=== PATIENT | male | born 1980 | race Caucasian/White ===

== ENCOUNTER 2018-01-03 07:07 | Emergency (ER) | payer OTHER ==
[2018-01-03 07:22] VITALS: BP 158/81
[2018-01-03] MEDS ORDERED: LIDOCAINE 1% INJ-PF (10 MG/ML) 30 ML SDV INJ ONE (07:46)
--- NOTE | 2018-01-03 07:58 | ER Document Report ---
HPI - HPI Patient complains to provider of: Laceration Onset: Just prior to arrival Onset/Duration: Sudden Quality of pain: Achy Severity: Moderate Pain Level: 3 Context: Patient presents emergency department with complaints of laceration to right palm. Patient reports he was working for [employer] when he stuck his hand in a box and there was a razor cutting his hand. He reports the razor was clean. Is unsure when his last tetanus was possibly 3-4 years ago. Patient is right-hand dominant. Has full range of motion no active bleeding. good cap refill Associated Symptoms: None Exacerbated by: Denies Relieved by: Denies Similar symptoms previously: No Recently seen / treated by doctor: No - CONSTITUTIONAL Constitutional: DENIES: Fever, Chills Past Medical History - General Information source: Patient - Social History Smoking Status: Current Every Day Smoker Chew tobacco use (# tins/day): No Frequency of alcohol use: None Drug Abuse: None Occupation: [employer] Lives with: Family Family History: None Patient has suicidal ideation: No Patient has homicidal ideation: No - Medical History Medical History: Negative Renal/ Medical History: Denies: Hx Peritoneal Dialysis Surgical Hx: Negative Vertical Provider Document - CONSTITUTIONAL Agree With Documented VS: Yes Exam Limitations: No Limitations General Appearance: WD/WN, No Apparent Distress - INFECTION CONTROL TRAVEL OUTSIDE OF THE [place] IN LAST 30 DAYS: No - HEENT HEENT: Atraumatic, Normocephalic - NECK Neck: Supple - RESPIRATORY Respiratory: No Respiratory Distress - CARDIOVASCULAR Cardiovascular: Tachycardia - MUSCULOSKELETAL/EXTREMETIES Musculoskeletal/Extremeties: MAEW, FROM, Tender - NEURO Level of Consciousness: Awake, Alert, Appropriate Motor/Sensory: No Motor Deficit - DERM Integumentary: Warm, Dry, Laceration - 3cm curved laceration to right palm, no active bleeding Course - Re-evaluation Re-evalutation: 01/03/18 16:24 Patient was instructed on signs and symptoms of infection. Sutures placed reinforced with Steri-Strips. Patient was given a work note to be off work for 10 days and instructed to return here to follow-up to have suture removal. He verbalized understanding to all instructions. - Vital Signs Vital signs: Temp Pulse Resp BP Pulse Ox 98.6 F 107 H 16 158/81 H 99 01/03/18 07:13 01/03/18 07:13 01/03/18 07:13 01/03/18 07:13 01/03/18 07:13 Procedures - Laceration/Wound Repair Right Hand Time completed: 08:56 Wound length (cm): 3 Wound's Depth, Shape: Irregular Laceration pre-procedure: Sterile PPE donned, Shur-Clens applied Anesthetic type: 1% Lidocaine Volume Anesthetic (mLs): 6 Wound explored: Clean Irrigated w/ Saline (mLs): 100 Wound Repaired With: Sutures, Steri-strips Suture Size/Type: 5:0, Nylon Number of Sutures: 9 Layer Closure?: No Post-procedure NV exam normal: Yes Complications: No Hands front picture: 1 - 3 CM LAC CLOSED WITH 9 SUTURES, FROM, DENIES NUMBNESS TINGLING Discharge - Discharge Clinical Impression: Laceration of right palm Qualifiers: Encounter type: initial encounter Qualified Code(s): S61.411A - Laceration without foreign body of right hand, initial encounter Condition: Stable Disposition: HOME, SELF-CARE Instructions: Laceration Care (OM), Soap Cleansing (OM), Tetanus Immunization Given ([facility]) Additional Instructions: *You have been treated for a laceration *Monitor the site for signs of infection such as increasing pain, redness, swelling, warmth *Keep the area clean, do not submerge in water such as the new river *Return to the Emergency Department in 10 days for suture removal *Return to ED earlier for signs of infection, worsening condition, changes, needs, concerns Forms: Return to Work
[2018-01-03] MEDS ORDERED: DIPH/PERTUSS(ACELL)/TETANUS VAC/PF 0.5 ML SYR (>=10YO) IM ONE (08:54)
== END 2018-01-03 09:14 | disposition home or self-care (01) ==
LOC: ER 07:07
PROC: 0HQFXZZ Repair Right Hand Skin, External Approach (ICD-10-PCS; principal; 2018-01-03)
DX: S61.411A Laceration without foreign body of right hand, initial encounter (principal); W26.0XXA Contact with knife, initial encounter; F17.200 Nicotine dependence, unspecified, uncomplicated
CPT/HCPCS: 99283; 90471; 90715; 12002; J3490

== ENCOUNTER 2018-01-13 06:55 | Emergency (ER) | payer OTHER ==
[2018-01-13 07:35] VITALS: BP 147/91
--- NOTE | 2018-01-13 07:43 | ER Document Report ---
ED General - General Chief Complaint: Other Stated Complaint: STITCHES REMOVAL Time Seen by Provider: 01/13/18 07:19 Mode of Arrival: Ambulatory Information source: Patient Notes: Patient is a 37-year-old male who presents to the ER today to get sutures removed from the right palm that he had placed 7 days ago. Patient states that he was initially injured on accident with a switch box installer. He was up-to-date on tetanus. He denies that he has had any redness or drainage from the area. TRAVEL OUTSIDE OF THE [place] IN LAST 30 DAYS: No - Related Data Allergies/Adverse Reactions: No Known Allergies Allergy (Verified 01/13/18 06:58) Home Medications: no home meds Past Medical History - General Information source: Patient - Social History Smoking Status: Current Every Day Smoker Chew tobacco use (# tins/day): No Frequency of alcohol use: None Drug Abuse: None Family History: None Patient has suicidal ideation: No Patient has homicidal ideation: No Renal/ Medical History: Denies: Hx Peritoneal Dialysis Review of Systems - Review of Systems Constitutional: No symptoms reported EENT: No symptoms reported Cardiovascular: No symptoms reported Respiratory: No symptoms reported Gastrointestinal: No symptoms reported Genitourinary: No symptoms reported Male Genitourinary: No symptoms reported Musculoskeletal: No symptoms reported Skin: See HPI Hematologic/Lymphatic: No symptoms reported Neurological/Psychological: No symptoms reported Physical Exam - Vital signs Vitals: Temp Pulse Resp BP Pulse Ox 99.0 F 94 20 147/91 H 98 01/13/18 07:34 01/13/18 07:34 01/13/18 07:34 01/13/18 07:34 01/13/18 07:34 - Notes Notes: PHYSICAL EXAMINATION: GENERAL: Well-appearing and in no acute distress. HEAD: Atraumatic, normocephalic. EYES: Pupils equal round and reactive to light, extraocular movements intact, sclera anicteric, conjunctiva are normal. NECK: Normal range of motion, supple without lymphadenopathy LUNGS: CTAB and equal. No wheezes rales or rhonchi. HEART: Regular rate and rhythm without murmurs EXTREMITIES: Normal range of motion, no pitting edema. No cyanosis. NEUROLOGICAL: Cranial nerves grossly intact. Normal sensory/motor exams. PSYCH: Normal mood, normal affect. SKIN: Warm, Dry, normal turgor, 9 sutures placed to the right palm at the base of the right thumb, well-healed, no erythema or drainage Course - Re-evaluation Re-evalutation: 01/13/18 07:42 Sutures were removed successfully by nurse. - Vital Signs Vital signs: Temp Pulse Resp BP Pulse Ox 99.0 F 94 20 147/91 H 98 01/13/18 07:34 01/13/18 07:34 01/13/18 07:34 01/13/18 07:34 01/13/18 07:34 Discharge - Discharge Clinical Impression: Visit for suture removal Condition: Stable Disposition: HOME, SELF-CARE Additional Instructions: Return immediately for any new or worsening symptoms. Follow up with primary care provider, call tomorrow to make followup appointment.
== END 2018-01-13 08:05 | disposition home or self-care (01) ==
LOC: ER 06:55
DX: S61.411D Laceration without foreign body of right hand, subsequent encounter (principal); W26.0XXD Contact with knife, subsequent encounter; F17.200 Nicotine dependence, unspecified, uncomplicated